=== PATIENT | female | born 1995 | race American Indian/Alaskan Native ===

== ENCOUNTER 2019-09-14 18:34 | Emergency (ER) | payer OTHER ==
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
[2019-09-14 19:26] VITALS: BP 107/66
[2019-09-14 19:57] LABS: HCG Qualitative,Urine Negative (Negative)
[2019-09-14 19:59] LABS: Bilirubin,Urine NEG (Negative); Blood,Urine NEG (Negative); Color,Urine Straw (Yellow); Protein,Urine <15 mg/dL mg/dL (Negative); Urobilinogen,Urine < 2.0 mg/dL (<2.0)
[2019-09-14] MEDS ORDERED: HYDROcodone/ACETAMINOPHEN 5-325 MG TAB PO STA (21:11)
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
== END 2019-09-14 23:00 | disposition home or self-care (01) ==
LOC: ED 18:34
DX: M54.2 Cervicalgia (principal); M54.5 Low back pain; M79.10 Myalgia, unspecified site; V89.2XXA Person injured in unspecified motor-vehicle accident, traffic, initial encounter; Y93.89 Activity, other specified; Y92.488 Other paved roadways as the place of occurrence of the external cause; Y99.8 Other external cause status
CPT/HCPCS: 72040; 72070; 81001; 81025; 99283

== ENCOUNTER 2020-01-21 22:07 | Emergency (ER) | payer SELFPAY ==
[2020-01-21 22:22] VITALS: BP 131/84
[2020-01-22] MEDS ORDERED: TETRACAINE 0.5% OPHTH SOLN 4ML OU PRN (03:59)
[2020-01-22] MEDS ORDERED: FLUORESCEIN 1 MG STRIP OP ONE (03:59)
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
== END 2020-01-22 05:20 | disposition home or self-care (01) ==
LOC: ED 22:07
DX: S05.02XA Injury of conjunctiva and corneal abrasion without foreign body, left eye, initial encounter (principal); S05.8X2A Other injuries of left eye and orbit, initial encounter; Z79.899 Other long term (current) drug therapy; Y04.8XXA Assault by other bodily force, initial encounter; Y93.89 Activity, other specified; Y92.89 Other specified places as the place of occurrence of the external cause; Y99.8 Other external cause status